=== PATIENT | female | born 1960 | race Caucasian/White ===

== ENCOUNTER 2017-11-30 06:14 | Day surgery (SDC) | END 2017-11-30 11:31 | disposition home or self-care (01) ==

== ENCOUNTER 2018-04-12 05:43 | Day surgery (SDC) | payer OTHER ==
[~2018-04-12] VITALS: Ht 162.6 cm; Wt 82.1 kg
[~2018-04-12 05:43] MED LIST: CELEBREX; LEVO125T71 PO; SULFASALAZINE
[2018-04-12] MEDS ORDERED: FENTAnyl 50 MCG/ML VIAL ONE (08:05)
[2018-04-12] MEDS ORDERED: MIDAZOLAM 1 MG/ML 2 ML INJ ONE ×2 (08:05→08:06)
[2018-04-12 08:29] VITALS: BP 127/80; PULSE 74; RESP 14
== END 2018-04-12 11:43 | disposition home or self-care (01) ==
LOC: GIL 05:43
PROVIDERS: ATTEND Internal Medicine Gastroenterology
DX: K29.30 Chronic superficial gastritis without bleeding (principal); K21.9 Gastro-esophageal reflux disease without esophagitis
CPT/HCPCS: 43239; 88305; 88312; J2250; J3010; Z7610